=== PATIENT | male | born 1960 | race Hispanic/Latino ===

== ENCOUNTER → 2023-09-03 | Outpatient (CLI) | payer MEDICARE | END | disposition home or self-care (01) | LOC: RAH 12:20 | PROVIDERS: ATTEND Urology | DX: N50.3 Cyst of epididymis (principal); K40.90 Unilateral inguinal hernia, without obstruction or gangrene, not specified as recurrent; N49.2 Inflammatory disorders of scrotum | CPT/HCPCS: 76870 ==

== ENCOUNTER → 2023-12-31 | Outpatient (CLI) | payer OTHER | END | disposition home or self-care (01) | LOC: RAH 09:35 | PROVIDERS: ATTEND Internal Medicine Cardiovascular Disease | DX: Z13.6 Encounter for screening for cardiovascular disorders (principal) | CPT/HCPCS: 75571 ==